=== PATIENT | female | born 1975 | race Caucasian/White ===

== ENCOUNTER → 2023-06-21 | Outpatient (CLI) | payer OTHER ==
[2023-06-21 07:50] LABS: Basophils # (auto) 0 10 ^3/uL (0-0.2); Basophils % (auto) 0.5 % (0.0-2.0); Eosinophils # (auto) 0.2 10 ^3/uL (0-0.8); Eosinophils % (auto) 2.6 % (0.0-7.0); Hematocrit 44.3 % (36.0-46.0); Hemoglobin 14.7 g/dL (12.2-16.2); Lymphocytes # (auto) 2.8 10 ^3/uL (0.4-5.4); Lymphocytes % (auto) 36.5 % (10.0-50.0); Mean Corpuscular Hemoglobin 28.5 pg (28.0-32.0); Mean Corpuscular Hgb Conc. 33.3 g/dL (32.0-36.0); Mean Corpuscular Volume 85.5 fL (80.0-100.0); Monocytes # (auto) 0.6 10 ^3/uL (0-1.3); Monocytes % (auto) 7.7 % (0.0-12.0); Neutrophils % (auto) 52.7 % (37.0-80.0); Red Blood Cells 5.18 10^6/uL (4.0-5.20); Red Cell Distribution Width 14.1 % (11.8-14.3); White Blood Cell 7.6 10^3/uL (4.4-10.8)
[2023-06-21 08:15] LABS: Urine Blood 3+ /uL (Negative); Urine Clarity Clear (Clear); Urine Color Yellow (Yellow); Urine Protein, UAD Negative (Negative); Urine Specific Gravity 1.019 (1.001-1.035); Urine Urobilinogen Normal (Negative); Urine pH 5.5 (5.0-8.0)
[2023-06-21 08:22] LABS: Alanine Aminotransferase 40 U/L (7-40); Alkaline Phosphatase 102 U/L (46-116); Anion Gap 6 (5-15); Aspartate Aminotransferase 19 U/L (13-40); BUN/Creatinine Ratio 11.8 (10.0-20.0); Blood Urea Nitrogen 8 mg/dL (9-23); Calcium 9.3 mg/dL (8.5-10.1); Carbon Dioxide 25 mmol/L (20-30); Chloride 109 mmol/L (98-107); Glucose 96 mg/dL (74-106); LDL Cholesterol 100 mg/dL (< 100); Potassium 4.4 mmol/L (3.5-5.1); Sodium 140 mmol/L (136-145); Triglycerides 92 mg/dL (< 150)
[2023-06-21 08:23] LABS: Albumin 4.5 g/dL (3.2-4.8); Bilirubin, Total 0.3 mg/dL (0.2-1.0); Cholesterol 143 mg/dL (< 200); HDL Cholesterol 38 mg/dL (40-59); Total Protein 7.2 g/dL (5.7-8.2)
[2023-06-21 09:21] LABS: Hepatitis B Core Total AB Negative (Negative)
[2023-06-21 11:43] LABS: Hepatitis A Total Antibody Negative (Negative); Hepatitis B Surface Antibody Negative (Negative); Hepatitis B Surface Antigen Negative (Negative); Hepatitis C Antibody Negative (Negative)
== END | disposition home or self-care (01) ==
LOC: LAB 07:27
DX: Z00.01 Encounter for general adult medical examination with abnormal findings (principal); Z12.11 Encounter for screening for malignant neoplasm of colon; Z11.3 Encounter for screening for infections with a predominantly sexual mode of transmission
CPT/HCPCS: 36415; 80053; 80061; 81003; 82274; 82306; 83036; 84443; 85025; 86703; 86704; 86706; 86708; 86803; 87340

== ENCOUNTER → 2025-01-30 | Outpatient (CLI) | payer OTHER | END | disposition home or self-care (01) | LOC: LAB 11:13 | PROVIDERS: ATTEND Family Medicine | DX: D48.5 Neoplasm of uncertain behavior of skin (principal) ==

== ENCOUNTER 2025-03-11 06:08 | Inpatient (IN) | payer OTHER ==
[2025-03-09 10:48] LABS: Hematocrit 44.0 % (36.0-46.0); Hemoglobin 15.2 g/dL (12.2-16.2); Mean Corpuscular Hemoglobin 29.2 pg (28.0-32.0); Mean Corpuscular Volume 84.5 fL (80.0-100.0); Nucleated Red Blood Cells % 0.0 %
[2025-03-09 10:53] LABS: Urine Protein, UAD Negative (Negative)
[2025-03-09 11:07] LABS: INR 0.95 (0.9-1.15); Partial Thromboplastin Time 27.3 SEC (24.5-34.5); Prothrombin Time 10.1 sec (9.3-11.8)
[2025-03-09 12:04] LABS: Alanine Aminotransferase 22 U/L (7-40); Albumin 4.7 g/dL (3.2-4.8); Alkaline Phosphatase 90 U/L (46-116); Anion Gap 7 (5-15); BUN/Creatinine Ratio 9.3 (10.0-20.0); Bilirubin, Total 0.5 mg/dL (0.2-1.0); Calcium 9.6 mg/dL (8.7-10.4); Carbon Dioxide 27 mmol/L (20-31); Glucose 91 mg/dL (74-106); Potassium 4.8 mmol/L (3.5-5.1); Sodium 142 mmol/L (136-145); Total Protein 7.3 g/dL (5.7-8.2)
[2025-03-09 12:15] LABS: Blood Urea Nitrogen 7 mg/dL (9-23); Chloride 108 mmol/L (98-107)
[~2025-03-11] VITALS: Ht 160 cm; Wt 92.4 kg
[~2025-03-11 06:08] MED LIST: ATOR10TA PO
[2025-03-11] MEDS: ceFAZolin 2 GM/D5W50ml 50 ML IV ONE (06:37)
[2025-03-11] MEDS: SUCCINYLCHOLINE CHLORIDE 20 MG/ML 10ML VIAL IV ONE (06:49)
[2025-03-11] MEDS ORDERED: fentaNYL CITRATE 100 MCG/2 ML VL ONE (06:52)
[2025-03-11] MEDS ORDERED: HYDROmorphone HCL 2 MG/ML VL/or syr ONE (06:53)
[2025-03-11] MEDS ORDERED: ROCURONIUM 10MG/ML 10ML VIAL IV ONE (06:54)
[2025-03-11] MEDS ORDERED: PROPOFOL 10 MG/ML 20 ML IV ONE (06:54)
[2025-03-11] MEDS: LIDOCAINE W/ EPINEPHRINE 1% 20ML VIAL ONE (06:58)
[2025-03-11] MEDS: BUPIVACAINE HCL 0.25% P/F 10 ML VIAL ONE (06:59)
[2025-03-11] MEDS ORDERED: PHENYLEPHRINE HCL 10 MG/ML VL ONE (07:01)
[2025-03-11] MEDS ORDERED: ONDANSETRON HCL 4 MG/2 ML VIAL ONE (07:44)
[2025-03-11] MEDS ORDERED: SUGAMMADEX 200mg/2ml Vial (100MG/ML) IV ONE (08:05)
[2025-03-11] MEDS ORDERED: ACETAMINOPHEN/CODEINE#3 (300/30mg) TAB PO PRN (08:15)
[2025-03-11] MEDS ORDERED: HYDROmorphone HCL 2 MG/ML VL/or syr IV PRN ×2 (08:15→08:45)
[2025-03-11 08:22] VITALS: PULSE 102; RESP 17; O2SAT 95
--- NOTE | 2025-03-11 08:43 | DVHOP ---
DATE OF SURGERY: 03/11/2025 PREOPERATIVE DIAGNOSES: * Cholelithiasis. * Chronic cholecystitis. POSTOPERATIVE DIAGNOSES: * Cholelithiasis. * Chronic cholecystitis. SURGEON: Edis Andersen MD CONVERTER SUPERVISOR: Curtis Gilman NP ANESTHESIA: General endotracheal, Dr. Chacko. PROCEDURES: * Laparoscopy. * Laparoscopic cholecystectomy. DESCRIPTION OF PROCEDURE: Under general endotracheal anesthesia with the patient's skin prepped and draped, supraumbilical incision was made and Veress needle inserted by the hanging drop technique in order to establish pneumoperitoneum to 15 mmHg of pressure by insufflation with carbon dioxide. With the abdomen fully distended, the needle was removed and replaced with a 5 mm trocar port through which a 0-degree viewing laparoscope was inserted and under direct vision, an additional 5 mm port was inserted through the right anterior axillary line at the level of the umbilicus and 10 mm port through the subxiphoid midline skin. Instrumentation was introduced. Laparoscopy was performed revealing no obvious unexpected pathology on any surfaces visualized. The gallbladder was partially intrahepatic, was placed on tension. The cystic duct and cystic artery were identified, circumferentially dissected, skeletonized, and traced into the hepatocystic triangle so as to minimize the potential for inadvertent injury to the common bile duct. The cystic duct and cystic artery were then divided between metallic clips close to the gallbladder, again attempting to avoid inadvertent injury to the common bile duct. The cystic duct and cystic artery having been divided, the gallbladder was resected from its liver bed by electrocautery and traction. Due to the intrahepatic nature of the gallbladder, a little of the hepatic bed was denuded for which reason a 10 mm Fede-Oreilly drain was then eventually placed underneath the right lobe of the liver and exteriorized through the 5 mm trocar port site and secured with a 2-0 nylon suture. The fully mobilized gallbladder was removed from the peritoneal cavity by placement in a specimen extraction bag which was then removed from the peritoneal cavity through the 10 mm port site. Right upper quadrant was profusely irrigated. Irrigant was aspirated. Hemostasis meticulously accomplished and found to be complete. At the termination of the procedure, there was no evidence of bleeding from either the liver bed or from the port sites. Instrumentation was withdrawn. Pneumoperitoneum was evacuated. Wounds approximated using Monocryl sutures, Dermabond glue, and Steri-Strips. The patient remained stable throughout the procedure and left the operating room following an accurate needle and sponge count. Her daughter was thoroughly informed by phone. MD CHANDRAKANT Perez/WALTER TID: [id number] RECEIPT: [id number]
[2025-03-11] MEDS ORDERED: METOCLOPRAMIDE HCL 5MG/ml INJ 2ml VIAL IV PRN ×2 (08:45→13:45)
[2025-03-11] MEDS ORDERED: ONDANSETRON HCL 4 MG/2 ML VIAL IV PRN (08:45)
[2025-03-11] MEDS ORDERED: ACETAMINOPHEN IV 1000 MG/100ML (10MG/ML) IV PRN (08:45)
[2025-03-11] MEDS ORDERED: LABETALOL HCL 20 MG/4 ML VL IV PRN (08:45)
[2025-03-11] MEDS ORDERED: MORPHINE SULFATE INJ 2 MG/ml SYRG IV PRN (09:30)
[2025-03-11] MEDS ORDERED: NITROGLYCERIN 0.4 MG SL TAB SL PRN (09:30)
[2025-03-11] MEDS: D5W/SOD CHL 0.45%/KCL 20MEQ 1,000 ML IV SCH (11:03)
[2025-03-11] MEDS: ONDANSETRON HCL 4 MG/2 ML VIAL IV PRN (11:08)
--- NOTE | 2025-03-11 11:59 | DVHHP2 ---
Review of Systems Allergies: Coded Allergies: NO KNOWN ALLERGIES (Unverified , 01/19/18) Medications Current Medications Medications Dose Ordered Sig/Caridad Route Start Time Stop Time Status Last Admin Dose Admin Potassium Chloride/Dextrose/ Sod Cl 1,000 ml @ 120 mls/hr Q8H20M IV 03/11/25 08:15 03/11/25 11:03 120 MLS/HR Cefazolin Sodium 50 ml @ 100 mls/hr Q8HR IV 03/11/25 14:00 Metronidazole 100 ml @ 100 mls/hr Q8HR IV 03/11/25 14:00 Ondansetron HCl 4 mg Q4HPRN PRN IV 03/11/25 08:15 03/11/25 11:08 4 MG Hydromorphone HCl 1 mg Q3HPRN PRN IV 03/11/25 08:15 Acetaminophen/ Codeine Phosphate 1 tab Q4HP PRN PO 03/11/25 08:15 Labetalol HCl 5 mg [id number] PRN IV 03/11/25 08:45 Nitroglycerin 0.4 mg Q5MINP PRN SL 03/11/25 09:30 Morphine Sulfate 2 mg Q30M PRN IV 03/11/25 09:30 Exam Vital Signs Vital Signs Date Time Temp Pulse Resp B/P (MAP) Pulse Ox O2 Delivery O2 Flow Rate FiO2 03/11/25 11:32 Room Air 03/11/25 11:30 90 16 141/78 (99) 96 03/11/25 08:22 95 03/11/25 08:22 97.3 97.3 Labs/Xrays Labs Test 03/09/25 10:18 Range/Units White Blood Count 7.9 4.4-10.8 10^3/uL Red Blood Count 5.21 H 4.0-5.20 10^6/uL Hemoglobin 15.2 12.2-16.2 g/dL Hematocrit 44.0 36.0-46.0 % Mean Corpuscular Volume 84.5 80.0-100.0 fL Mean Corpuscular Hemoglobin 29.2 28.0-32.0 pg Mean Corpuscular Hemoglobin Concent 34.6 32.0-36.0 g/dL Red Cell Distribution Width 14.0 11.8-14.3 % Platelet Count 303 140-450 10^3/uL Mean Platelet Volume 8.7 6.9-10.8 fL Neutrophils (%) (Auto) 54.6 37.0-80.0 % Lymphocytes (%) (Auto) 36.0 10.0-50.0 % Monocytes (%) (Auto) 7.5 0.0-12.0 % Eosinophils (%) (Auto) 1.2 0.0-7.0 % Basophils (%) (Auto) 0.7 0.0-2.0 % Neutrophils # (Auto) 4.3 1.6-8.6 10 ^3/uL Lymphocytes # (Auto) 2.8 0.4-5.4 10 ^3/uL Monocytes # (Auto) 0.6 0-1.3 10 ^3/uL Eosinophils # (Auto) 0.1 0-0.8 10 ^3/uL Basophils # (Auto) 0.1 0-0.2 10 ^3/uL Nucleated Red Blood Cells 0.0 % Prothrombin Time 10.1 9.3-11.8 sec Prothrombin Time INR 0.95 0.9-1.15 Activated Partial Thromboplast Time 27.3 24.5-34.5 SEC Urine Color Light-yellow Yellow Urine Clarity Turbid H Clear Urine pH 5.5 5.0-9.0 Urine Specific [place] 1.023 1.001-1.035 Urine Protein Negative Negative Urine Ketones Negative Negative Urine Blood 1+ H Negative /uL Urine Nitrite Negative Negative Urine Bilirubin Negative Negative Urine Urobilinogen Normal Negative mg/dL Urine Leukocyte Esterase 1+ Negative /uL Urine RBC 4 0 - 4 /hpf Urine Microscopic WBC 2 0-5 /HPF Urine Squamous Epithelial Cells Few <5 /hpf Urine Bacteria Few H None Seen /hpf Urine Mucus Few None Seen Urine Glucose Normal Normal mg/dL Urine Test Negative Negative Sodium Level 142 136-145 mmol/L Potassium Level 4.8 3.5-5.1 mmol/L Chloride Level 108 H 98-107 mmol/L Carbon Dioxide Level 27 20-31 mmol/L Anion Gap 7 5-15 Blood Urea Nitrogen 7 L 9-23 mg/dL Creatinine 0.75 0.550-1.02 mg/dL Glomerular Filtration Rate Calc 97 >90 mL/min BUN/Creatinine Ratio 9.3 L 10.0-20.0 Serum Glucose 91 74-106 mg/dL Calcium Level 9.6 8.7-10.4 mg/dL Total Bilirubin 0.5 0.2-1.0 mg/dL Aspartate Amino Transferase (AST) 25 13-40 U/L Alanine Aminotransferase (ALT) 22 7-40 U/L Alkaline Phosphatase 90 46-116 U/L Total Protein 7.3 5.7-8.2 g/dL Albumin 4.7 3.2-4.8 g/dL SEPSIS Sepsis Screen Physician Orders To Pacu For Recovery (03/11/25 08:12) Oxygen Via Cool Mist Mask (03/11/25 08:12) Incentive Spirometry Q 1hr (03/11/25 08:12) Abdominal Binder (03/11/25 08:12) Efe To Bulb Suction (03/11/25 08:12) Sequential Compression Device (03/11/25 08:12) Bilirubin, Total (03/12/25 04:00) Page Hospitalist For Admission (03/11/25 08:12) D5w/Sod Chl 0.45%/Kcl 20meq (03/11/25 08:15) Cefazolin 1gm/50ml (Ancef) (03/11/25 14:00) Metronidazole 500mg/100ml (Flagyl 500mg/ (03/11/25 14:00) Ondansetron Hcl (Zofran) (03/11/25 08:15) Hydromorphone Injection (Dilaudid Inject (03/11/25 08:15) Acetaminophen/Codeine Tablet (Tylenol W/ (03/11/25 08:15) Tool Technician (03/11/25 08:31) Notify Anesth. For Changes: (03/11/25 08:31) Discharge To Room Per Criteria (03/11/25 08:31) Labetalol Hcl (Labetalol Hcl) (03/11/25 08:45) Clear Liq Diet (03/11/25 Breakfast) Admit (03/11/25 09:16) Oxygen By Nasal Cannula (03/11/25 09:16) Nitroglycerin Sublingual (Ntrostat Subli (03/11/25 09:30) Morphine Sulfate Injection (03/11/25 09:30) Stat Ekg For Chest Pain (03/11/25 09:16) Notify Md Of Changes From Base (03/11/25 09:16) Emergency Dysrhythmia Protocol (03/11/25 09:16) Rhythm Strips Once Every Shift (03/11/25 09:16) Vital Signs Date Time Temp Pulse Resp B/P (MAP) Pulse Ox O2 Delivery O2 Flow Rate FiO2 03/11/25 11:32 Room Air 03/11/25 11:32 Room Air 03/11/25 11:30 90 16 141/78 (99) 96 03/11/25 10:30 74 14 129/81 (97) 94 03/11/25 10:14 Room Air 03/11/25 09:50 65 14 140/71 (94) 97 03/11/25 09:20 69 11 140/84 (102) 95 03/11/25 09:05 68 12 152/84 (106) 99 03/11/25 08:50 72 20 166/80 (108) 98 03/11/25 08:35 70 21 176/93 (120) 93 03/11/25 08:30 86 23 175/96 (122) 95 03/11/25 08:25 99 14 163/103 (123) 95 03/11/25 08:22 Room Air 95 03/11/25 08:22 97.3 102 17 150/102 (118) 95 97.3 03/11/25 08:22 102 17 95 Room Air 03/11/25 06:28 97.7 69 20 118/71 (87) 97 97.7 Medications Medications Dose Ordered Sig/Caridad Route Start Time Stop Time Status Last Admin Dose Admin Bupivacaine HCl 20 ml STK-MED ONCE .ROUTE 03/11/25 06:59 03/11/25 06:56 DC 03/11/25 08:10 6 ML Lidocaine/ Epinephrine 20 ml STK-MED ONCE .ROUTE 03/11/25 06:58 03/11/25 06:55 DC 03/11/25 08:10 6 ML Ondansetron HCl 4 mg Q4HPRN PRN IV 03/11/25 08:15 03/11/25 11:08 4 MG Potassium Chloride/Dextrose/ Sod Cl 1,000 ml @ 120 mls/hr Q8H20M IV 03/11/25 08:15 03/11/25 11:03 120 MLS/HR Assessment/Plan Assessment/Plan see dictated note Plan discussed with: Patient My Orders Orders - ELOINA ZULUAGA MD Procedure Category Date Status Time Clear Liq Diet DIET 03/11/25 Transmitted Breakfast Admit ADMIT 03/11/25 Transmitted 09:16 Oxygen By Nasal RT 03/11/25 Transmitted Cannula 09:16 Nitroglycerin PHA 03/11/25 In Process Sublingual (Ntrostat 09:30 Morphine Sulfate [facility] 03/11/25 In Process Injection 09:30 Stat Ekg For Chest [facility] 03/11/25 In Process Pain 09:16 Notify Md Of Changes [facility] 03/11/25 In Process From Base 09:16 Emergency Dysrhythmia [facility] 03/11/25 In Process Protocol 09:16 Rhythm Strips Once [facility] 03/11/25 In Process Every Shift 09:16 Date of Service: Mar 11, 2025 Billing Provider: ELOINA ZULUAGA MD Common Visit Codes: [id number] INP/OBS CARE (HIGH) ELOINA ZULUAGA MD Mar 11, 2025 11:59
[2025-03-11] MEDS ORDERED: HYDROcodone-ACET 5/325MG TAB PO PRN (12:00)
--- NOTE | 2025-03-11 12:10 | DVHHP ---
ADMIT DATE: 03/11/2025 HISTORY OF PRESENT ILLNESS: The patient is a 49-year-old lady who is admitted after she underwent laparoscopic cholecystectomy for cholelithiasis and chronic cholecystitis. The patient at this time denies any significant pain. No chest pain, no shortness of breath, no nausea or vomiting. REVIEW OF SYSTEMS: Review of rest of systems is otherwise currently negative. PAST MEDICAL HISTORY: Significant for hyperlipidemia. MEDICATIONS: She takes atorvastatin. SOCIAL HISTORY: Nonsmoker. No alcohol. Lives at home with her . FAMILY HISTORY: Negative. PHYSICAL EXAMINATION: GENERAL: The patient is awake, alert. VITAL SIGNS: Temperature of 97.3, pulse 74 per minute, blood pressure 140/71. SHEENT: Unremarkable. NECK: There is no JVD, no pedal edema. LUNGS: Equal bilaterally. No added sounds. CARDIOVASCULAR SYSTEM: S1 and S2 is regular without murmurs. ABDOMEN: Soft. Bowel sounds are hypoactive. NEUROLOGIC: Nonfocal. MUSCULOSKELETAL: Normal. ASSESSMENT AND PLAN: * Hyperlipidemia. * Obesity. * Status post laparoscopic cholecystectomy for cholelithiasis and chronic cholecystitis. She will be placed on IV fluids along with pain medications. MD NATHANIEL Anthony/ANTHONY TID: [id number] RECEIPT: [id number]
[2025-03-11] MEDS: ceFAZolin 1GM/50ML 50 ML IV SCH (14:13)
[2025-03-11 15:00] VITALS: BP 116/74; PULSE 93; RESP 18; TEMP 98.1; O2SAT 97
[2025-03-11 15:17] VITALS: BP 136/77; PULSE 66; RESP 17; RESP 18; TEMP 98.6; O2SAT 96
[2025-03-11 16:43] VITALS: BP 114/70; PULSE 85; RESP 16; TEMP 98.1; O2SAT 98
[2025-03-11 20:00] VITALS: PULSE 95; RESP 17; O2SAT 98
[2025-03-11 21:00] VITALS: BP 117/67; PULSE 95; RESP 17; TEMP 98.2; O2SAT 98
[2025-03-12 01:00] VITALS: BP 115/72; PULSE 73; RESP 17; TEMP 98.3; O2SAT 98
[2025-03-12 05:00] VITALS: BP 125/67; PULSE 68; RESP 16; TEMP 98.3; O2SAT 96
[2025-03-12 06:24] LABS: Hematocrit 43.5 % (36.0-46.0); Hemoglobin 14.9 g/dL (12.2-16.2); Mean Corpuscular Hemoglobin 28.7 pg (28.0-32.0); Mean Corpuscular Volume 84.2 fL (80.0-100.0); Nucleated Red Blood Cells % 0.0 %
[2025-03-12 07:01] LABS: Alanine Aminotransferase 37 U/L (7-40); Alkaline Phosphatase 85 U/L (46-116); Anion Gap 10 (5-15); Calcium 9.4 mg/dL (8.7-10.4); Carbon Dioxide 25 mmol/L (20-31); Chloride 105 mmol/L (98-107); Potassium 4.0 mmol/L (3.5-5.1); Sodium 140 mmol/L (136-145)
[2025-03-12 07:02] LABS: BUN/Creatinine Ratio 8.6 (10.0-20.0); Glucose 99 mg/dL (74-106); Total Protein 7.2 g/dL (5.7-8.2)
[2025-03-12 07:03] LABS: Albumin 4.4 g/dL (3.2-4.8)
[2025-03-12 07:04] LABS: Bilirubin, Total 0.5 mg/dL (0.2-1.0); Blood Urea Nitrogen 6 mg/dL (9-23)
[2025-03-12 08:00] VITALS: PULSE 80; RESP 18; O2SAT 93
[2025-03-12 09:00] VITALS: BP_SYST 102; BP_SYST 121; BP_DIAS 53; BP_DIAS 71; PULSE 80; PULSE 84; RESP 18; RESP 20; TEMP 98.5; TEMP 98.6; O2SAT 92; O2SAT 97
--- NOTE | 2025-03-12 09:44 | DVHPN2 ---
Progress Note Date Seen: Mar 12, 2025 Medical Necessity Reason Pt with a Central, PICC or Fol: No Objective vital signs Vital Sign Date Time Temp Pulse Resp B/P (MAP) Pulse Ox O2 Delivery O2 Flow Rate FiO2 03/12/25 05:00 98.3 68 16 125/67 (86) 96 98.3 03/11/25 20:00 Room Air* 0 21 Total Intake and Output 03/11/25 03/11/25 03/12/25 15:00 23:00 07:00 Intake Total 50 ml 250 ml 700 ml Output Total 40 ml Balance 10 ml 250 ml 700 ml medications Current Medications Medications Dose Ordered Sig/Caridad Route Start Time Stop Time Status Last Admin Dose Admin Potassium Chloride/Dextrose/ Sod Cl 1,000 ml @ 120 mls/hr Q8H20M IV 03/11/25 08:15 03/11/25 11:03 120 MLS/HR Cefazolin Sodium 50 ml @ 100 mls/hr Q8HR IV 03/11/25 14:00 03/12/25 05:05 100 MLS/HR Metronidazole 100 ml @ 100 mls/hr Q8HR IV 03/11/25 14:00 03/12/25 05:45 100 MLS/HR Ondansetron HCl 4 mg Q4HPRN PRN IV 03/11/25 08:15 03/11/25 20:00 4 MG Hydromorphone HCl 1 mg Q3HPRN PRN IV 03/11/25 08:15 Acetaminophen/ Codeine Phosphate 1 tab Q4HP PRN PO 03/11/25 08:15 Hold Labetalol HCl 5 mg [id number] PRN IV 03/11/25 08:45 Nitroglycerin 0.4 mg Q5MINP PRN SL 03/11/25 09:30 Morphine Sulfate 2 mg Q30M PRN IV 03/11/25 09:30 Acetaminophen/ Hydrocodone Bitart 1 tab Q6HPRN PRN PO 03/11/25 12:00 laboratory and microbiology Laboratory Tests 03/12/25 05:19 Test 03/12/25 05:19 Range/Units Serum Glucose 99 74-106 mg/dL Problem List/Assessment/Plan Problem List/Assessment/Plan 03/12/25 doing well, tolerating po, no nausea, abdomen soft, non distended, appropriately tender, wounds ok, labs reviewed she is wanting to go home and i believe that is appropriate. Plan discussed with: Patient CARLOS THOMAS MD Mar 12, 2025 09:44
--- NOTE | 2025-03-12 10:39 | DVHDS2 ---
Discharge Summary Date of Admission Mar 11, 2025 at 09:16 Date of Discharge: Mar 12, 2025 Labs/Diagnostic Data: Laboratory Results Test 03/12/25 05:19 03/09/25 10:18 White Blood Count 15.3 10^3/uL (4.4-10.8) Red Blood Count 5.17 10^6/uL (4.0-5.20) Hemoglobin 14.9 g/dL (12.2-16.2) Hematocrit 43.5 % (36.0-46.0) Mean Corpuscular Volume 84.2 fL (80.0-100.0) Mean Corpuscular Hemoglobin 28.7 pg (28.0-32.0) Mean Corpuscular Hemoglobin Concent 34.2 g/dL (32.0-36.0) Red Cell Distribution Width 14.0 % (11.8-14.3) Platelet Count 343 10^3/uL (140-450) Mean Platelet Volume 8.9 fL (6.9-10.8) Neutrophils (%) (Auto) 72.1 % (37.0-80.0) Lymphocytes (%) (Auto) 19.8 % (10.0-50.0) Monocytes (%) (Auto) 7.8 % (0.0-12.0) Eosinophils (%) (Auto) 0.1 % (0.0-7.0) Basophils (%) (Auto) 0.2 % (0.0-2.0) Neutrophils # (Auto) 11.1 10 ^3/uL (1.6-8.6) Lymphocytes # (Auto) 3.0 10 ^3/uL (0.4-5.4) Monocytes # (Auto) 1.2 10 ^3/uL (0-1.3) Eosinophils # (Auto) 0 10 ^3/uL (0-0.8) Basophils # (Auto) 0 10 ^3/uL (0-0.2) Nucleated Red Blood Cells 0.0 % Sodium Level 140 mmol/L (136-145) Potassium Level 4.0 mmol/L (3.5-5.1) Chloride Level 105 mmol/L (98-107) Carbon Dioxide Level 25 mmol/L (20-31) Anion Gap 10 (5-15) Blood Urea Nitrogen 6 mg/dL (9-23) Creatinine 0.70 mg/dL (0.550-1.02) Glomerular Filtration Rate Calc 105 mL/min (>90) BUN/Creatinine Ratio 8.6 (10.0-20.0) Serum Glucose 99 mg/dL (74-106) Calcium Level 9.4 mg/dL (8.7-10.4) Total Bilirubin 0.5 mg/dL (0.2-1.0) Aspartate Amino Transferase (AST) 46 U/L (13-40) Alanine Aminotransferase (ALT) 37 U/L (7-40) Alkaline Phosphatase 85 U/L (46-116) Total Protein 7.2 g/dL (5.7-8.2) Albumin 4.4 g/dL (3.2-4.8) Prothrombin Time 10.1 sec (9.3-11.8) Prothrombin Time INR 0.95 (0.9-1.15) Activated Partial Thromboplast Time 27.3 SEC (24.5-34.5) Urine Color Light-yellow (Yellow) Urine Clarity Turbid (Clear) Urine pH 5.5 (5.0-9.0) Urine Specific [place] 1.023 (1.001-1.035) Urine Protein Negative (Negative) Urine Ketones Negative (Negative) Urine Blood 1+ /uL (Negative) Urine Nitrite Negative (Negative) Urine Bilirubin Negative (Negative) Urine Urobilinogen Normal mg/dL (Negative) Urine Leukocyte Esterase 1+ /uL (Negative) Urine RBC 4 /hpf (0 - 4) Urine Microscopic WBC 2 /HPF (0-5) Urine Squamous Epithelial Cells Few /hpf (<5) Urine Bacteria Few /hpf (None Seen) Urine Mucus Few (None Seen) Urine Glucose Normal mg/dL (Normal) Urine Test Negative (Negative) Other Laboratory Tests 03/12/25 05:19 Brief Hx & Hospital Course: see dictated note Condition at Discharge: Good Final Diagnosis/Problems List lap stacie Discharge Disposition: Home Discharge Instruct/Medications Diet: Cardiac 2g Na,low cholest Activity: No Restrictions, As Tolerated Follow Up/Referral: schedule appt with dr Andersen in 1 wk Medications: script to pharmacy Scheduled Atorvastatin Calcium (Lipitor), 10 MG PO QPM, (Reported) Discharge Statement: "Patient was advised to return to the ER or call 911 if any headaches, dizziness, shortness of breath, chest pain, abdominal pain, bleeding, fevers, or worsening of medical condition. Patient was counseled about treatment plan, medications, possible side effects, patientverbalized understanding. All questions were answered to the best of my ability. This discharge took greater then 30 minutes in planning, reviewing documentation, counseling the patient, and discussing with other team members." ASSESSMENT ASSESSMENT Assessment abdelrahman quinones Date of Service: Mar 12, 2025 Billing Provider: ELOINA ZULUAGA MD Common Visit Codes: [id number] DISCH DAY >30min ELOINA ZULUAGA MD Mar 12, 2025 10:39
[2025-03-12] MEDS ORDERED: HYDR1TAB97 PO (10:41)
[2025-03-12] MEDS ORDERED: CEPH500T PO (10:41)
[2025-03-12] MEDS ORDERED: DOCU-94 PO (10:41)
[2025-03-12 10:47] VITALS: BP 121/71; PULSE 80; RESP 18; TEMP 98.6; O2SAT 97
--- NOTE | 2025-03-12 10:49 | DVHDS ---
DATE OF DISCHARGE: 03/12/2025 HISTORY OF PRESENT ILLNESS: The patient is a 49-year-old lady who is admitted after she underwent laparoscopic cholecystectomy for cholelithiasis and chronic cholecystitis. She has previous history of hyperlipidemia. HOSPITAL COURSE: The patient did well postoperatively. The patient has been tolerating oral diet. The patient will now be discharged home, to resume her home medications as well as to be on Porter p.r.n. for pain, Colace p.r.n. for constipation, and Keflex 500 mg t.i.d. for 7 days. She will follow up with Dr. Andersen in 1 week. FINAL DIAGNOSES: Therefore, * Hyperlipidemia. * Obesity. * Status post laparoscopic cholecystectomy for cholecystitis and chronic cholecystitis. Time spent in discharge planning and review of plan with the patient and nursing was 38 minutes. MD NATHANIEL Anthony/ANTHONY TID: [id number] RECEIPT: [id number]
== END 2025-03-12 12:00 | disposition home or self-care (01) | DRG 419 ==
LOC: SUR 06:08 → OVERFLOW 09:16 → CENTRAL 15:09
PROVIDERS: ADMIT Internal Medicine; ATTEND Internal Medicine
PROC: 0FT44ZZ Resection of Gallbladder, Percutaneous Endoscopic Approach (ICD-10-PCS; principal; 2025-03-11 07:21)
DX: K80.10 Calculus of gallbladder with chronic cholecystitis without obstruction (principal); E66.9 Obesity, unspecified; E78.5 Hyperlipidemia, unspecified; K59.00 Constipation, unspecified; Z79.899 Other long term (current) drug therapy; Z68.36 Body mass index [BMI] 36.0-36.9, adult
CPT/HCPCS: 36415; 80053; 81001; 81025; 85025; 85610; 85730; 86850; 86900; 86901; G0378; J0330; J1100; J2405; J2704; J3490

== ENCOUNTER → 2025-03-24 | Outpatient (CLI) | payer OTHER ==
[~2025-03-24] MED LIST changes: +CEPH500T PO; +DOCU-94 PO; +HYDR1TAB97 PO
[2025-03-24 11:20] LABS: Urine Protein, UAD Negative (Negative)
[2025-03-24 11:32] LABS: Hematocrit 42.1 % (36.0-46.0); Hemoglobin 14.7 g/dL (12.2-16.2); Mean Corpuscular Hemoglobin 29.3 pg (28.0-32.0); Mean Corpuscular Volume 84.2 fL (80.0-100.0); Nucleated Red Blood Cells % 0.1 %
[2025-03-24 11:36] LABS: Alanine Aminotransferase 33 U/L (7-40); Albumin 4.5 g/dL (3.2-4.8); Alkaline Phosphatase 98 U/L (46-116); Anion Gap 8 (5-15); BUN/Creatinine Ratio 10.3 (10.0-20.0); Bilirubin, Total 0.3 mg/dL (0.2-1.0); Calcium 9.5 mg/dL (8.7-10.4); Carbon Dioxide 27 mmol/L (20-31); Chloride 106 mmol/L (98-107); Glucose 92 mg/dL (74-106); Potassium 4.5 mmol/L (3.5-5.1); Sodium 141 mmol/L (136-145); Total Protein 7.3 g/dL (5.7-8.2)
[2025-03-24 11:40] LABS: Blood Urea Nitrogen 7 mg/dL (9-23)
[2025-03-24 18:57] LABS: Triglycerides 71 mg/dL (< 150)
[2025-03-24 18:59] LABS: Cholesterol 149 mg/dL (< 200); HDL Cholesterol 51 mg/dL (40-59)
== END | disposition home or self-care (01) ==
LOC: LAB 10:36
PROVIDERS: ATTEND Nurse Practitioner Family
DX: E78.5 Hyperlipidemia, unspecified (principal); E55.9 Vitamin D deficiency, unspecified
CPT/HCPCS: 36415; 80053; 80061; 81003; 82306; 83036; 84443; 85025

== ENCOUNTER 2025-06-30 11:51 | Day surgery (SDC) | payer OTHER ==
[2025-06-23 15:17] LABS: Hematocrit 45.4 % (36.0-46.0); Hemoglobin 15.4 g/dL (12.2-16.2); Mean Corpuscular Hemoglobin 28.7 pg (28.0-32.0); Mean Corpuscular Volume 84.5 fL (80.0-100.0); Nucleated Red Blood Cells % 0.1 %
[2025-06-23 15:31] LABS: INR 0.95 (0.9-1.15); Partial Thromboplastin Time 26.4 SEC (24.5-34.5); Prothrombin Time 10.1 sec (9.3-11.8)
[2025-06-23 15:46] LABS: Alanine Aminotransferase 32 U/L (7-40); Albumin 4.6 g/dL (3.2-4.8); Alkaline Phosphatase 107 U/L (46-116); Anion Gap 9 (5-15); BUN/Creatinine Ratio 13.0 (10.0-20.0); Bilirubin, Total 0.4 mg/dL (0.2-1.0); Blood Urea Nitrogen 10 mg/dL (9-23); Calcium 9.8 mg/dL (8.7-10.4); Carbon Dioxide 26 mmol/L (20-31); Glucose 95 mg/dL (74-106); Potassium 4.7 mmol/L (3.5-5.1); Sodium 143 mmol/L (136-145); Total Protein 7.7 g/dL (5.7-8.2)
[2025-06-23 15:53] LABS: Chloride 108 mmol/L (98-107)
[~2025-06-30] VITALS: Ht 160 cm; Wt 96.2 kg
[~2025-06-30 11:51] MED LIST changes: -CEPH500T PO; -DOCU-94 PO; -HYDR1TAB97 PO; +SODIUM CHLORIDE LOCK 10 ML ONE
[2025-06-30 14:55] VITALS: PULSE 83; RESP 19; O2SAT 100
[2025-06-30] MEDS: MIDAZOLAM HCL 5 MG/ML-1ML VIAL ONE (15:03)
[2025-06-30] MEDS: fentaNYL CITRATE 100 MCG/2 ML VL ONE ×2 (15:03→15:14)
[2025-06-30] MEDS: diphenhydrAMINE HCL 50 MG/1 ML VL ONE (15:03)
[2025-06-30 15:32] VITALS: PULSE 88; RESP 12; O2SAT 100
[2025-06-30 16:02] VITALS: BP 132/64; PULSE 89; RESP 13; O2SAT 100
--- NOTE | 2025-06-30 16:22 | DVHOP2 ---
Operative Report DATE OF OPERATION: 06/30/25 PROCEDURE: Colonoscopy with cold biopsy PREOPERATIVE INDICATION: The patient is a 49 -year-old female undergoing colonoscopy for colon cancer screening with family history of colon cancer POSTOPERATIVE DIAGNOSES: 1. Patient had mild sigmoid tortuosity and fixation 2. 1+ internal hemorrhoids with mild proctitis involving the distal 3-5 cm of the rectum from which biopsies were obtained 3. Otherwise completely normal colonoscopy examination up to the cecum and terminal ileum PROCEDURE PERFORMED BY: Nicho Briggs M.D. SCOPE: Olympus videocolonoscope. ASA CLASS: 2. PREOPERATIVE MEDICATIONS: Versed 5 mg, Fentanyl 150 mcg, Benadryl 50 mg PROCEDURE IN DETAIL: After obtaining an informed consent, the patient was placed on left lateral decubitus position. She was then sedated with the above medications. A rectal examination was performed that was normal. The colonoscope was then passed through the anus into the rectosigmoid and through the descending, transverse, and ascending colon up to the cecum with visualization of the appendiceal orifice, base of the cecum and the ileocecal valve. The colonoscope was then withdrawn. Distal 5 cm of the terminal ileum were normal No polyps or masses were seen. There was no clear-cut diverticular disease. Patient did have mild sigmoid tortuosity and fixation and mild tortuosity of the colon On retroflexion and straight on view the patient had mild proctitis involving the distal 3-5 cm the rectum and trace to 1+ internal hemorrhoids Rectal biopsies were obtained. The patient tolerated the procedure well without difficulty. WITHDRAWAL TIME: 6 minutes QUALITY OF THE PREP: [place] Bowel Prep score: 9. COMPLICATIONS : None SPECIMENS: Rectal biopsies DISPOSITION: Stable D/C to home PLAN: 1. Repeat colonoscopy base on biopsy result likely in 5-7 years because of family history 2. Local anorectal hemorrhoidal care trial of hemorrhoids suppositories 3. Increase fluid and fiber intake 4. Resume GI soft diet advance as tolerated 5. Outpatient follow up with me in 2-4 weeks to review results and discuss further management NICHO BRIGGS MD Jun 30, 2025 16:22
== END 2025-06-30 16:07 | disposition home or self-care (01) ==
LOC: GI 11:51
PROVIDERS: ATTEND Internal Medicine Gastroenterology
DX: Z12.11 Encounter for screening for malignant neoplasm of colon (principal); K64.8 Other hemorrhoids; K62.89 Other specified diseases of anus and rectum; E78.00 Pure hypercholesterolemia, unspecified; Z90.49 Acquired absence of other specified parts of digestive tract; Z98.51 Tubal ligation status; Z79.899 Other long term (current) drug therapy; Z80.0 Family history of malignant neoplasm of digestive organs
CPT/HCPCS: 36415; 45380; 80053; 81025; 85025; 85610; 85730; 88305; A4649; J1200; J2250; J3010; J7030; 99152